=== PATIENT | male | born 1970 | race American Indian/Alaskan Native ===

== ENCOUNTER 2022-12-08 09:58 | Emergency (ER) | payer OTHER ==
[~2022-12-08] VITALS: Ht 185.4 cm; Wt 69.9 kg
[2022-12-08] MEDS ORDERED: ONDANSETRON ODT4 MG PO (16:48)
--- NOTE | 2022-12-09 13:58 | EKG ---
[facility] [address] [facility] [place] [address] Signed Sinus bradycardia with premature atrial complexes Incomplete right bundle branch block T wave abnormality, consider anterior ischemia Prolonged QT Abnormal ECG No previous ECGs available Confirmed by NINA MAYORGA MD ([id number]) on 12/09/2022 1:58:26 PM Electronically Signed By: NINA MAYORGA MD 12/09/22 1358 PATIENT NAME: JENNIFER MCKEON ALBERT Electrocardiogram DATE OF : 74 PHYSICIAN: NINA MAYORGA MD REPORT #: [id number] REPORT IS CONFIDENTIAL AND NOT TO BE RELEASED WITHOUT AUTHORIZATION
== END 2022-12-08 17:00 | disposition home or self-care (01) ==
LOC: ED 09:58
DX: R11.2 Nausea with vomiting, unspecified (principal); R19.7 Diarrhea, unspecified
CPT/HCPCS: 36415; 80053; 81001; 83690; 83735; 85025; 93005; 93010; J0461; J0780; J1200; J2405; J3475; J7030

== ENCOUNTER 2023-08-08 10:38 | Emergency (ER) | payer OTHER ==
[~2023-08-08] VITALS: Ht 185.4 cm; Wt 69.2 kg
[~2023-08-08 10:38] MED LIST: ONDANSETRON ODT4 MG PO
[2023-08-08 11:14] LABS: BASOPHILS 0.2 % (0-2); HEMATOCRIT 38.2 % (35.0-50.0); HEMOGLOBIN 12.8 g/dL (12.0-18.0); LYMPHOCYTES 3.5 % (24-44); MCH 31.6 (27-36); MCHC 33.4 g/dl (30-36); MCV 94.7 fl (81-99); MONOCYTES 1.7 % (0-12); NEUTROPHILS 94.6 % (39-80); PLATELET COUNT 130 K/uL (140-440); RBC 4.04 M/ul (4.3-5.7); RDW 13.1 (10.5-15.0)
[2023-08-08 11:26] LABS: ALBUMIN 4.4 g/dL (3.4-5.0); ALBUMIN/GLOBULIN RATIO 1.38 (1.1-2.4); ANION GAP 14.2 (7-21); BILIRUBIN, TOTAL 1.8 ng/dL (0.2-1.0); BUN/CREATININE RATIO 22.77 (6.0-28.6); CREATININE, SERUM 1.01 mg/dL (0.70-1.30); MAGNESIUM 1.7 mg/dL (1.8-2.4); POTASSIUM 4.2 mmol/L (3.5-5.1); PROTEIN, TOTAL 7.6 g/dL (6.4-8.2)
[2023-08-08] MEDS ORDERED: ONDANSETRON ODT4 MG PO (14:42)
[2023-08-08 14:57] VITALS: BP 136/72
--- NOTE | 2023-08-08 20:37 | EKG ---
[facility] [address] [facility] [place] [address] Signed Marked sinus bradycardia Incomplete right bundle branch block Abnormal ECG When compared with ECG of 08-DEC-2022 10:16, premature atrial complexes are no longer present T wave inversion less evident in Anterior leads QT has shortened Confirmed by Regla Burns MD () on 08/08/2023 8:37:11 PM Electronically Signed By: REGLA BURNS MD 08/08/232036 PATIENT NAME: JENNIFER MCKEON Electrocardiogram DATE OF : 74 PHYSICIAN: REGLA BURNS MD REPORT #: [id number] REPORT IS CONFIDENTIAL AND NOT TO BE RELEASED WITHOUT AUTHORIZATION
== END 2023-08-08 14:57 | disposition home or self-care (01) ==
LOC: ED 10:38
PROVIDERS: Emergency Medicine
DX: R11.2 Nausea with vomiting, unspecified (principal); R19.7 Diarrhea, unspecified; E83.42 Hypomagnesemia
CPT/HCPCS: 36415; 80053; 83735; 84484; 85025; 93005; 93010; 96365; 96366; 96368; 96375; 99284-25; J0461; J0780; J1200; J2405; J3475; J7030

== ENCOUNTER 2024-05-25 17:31 | Emergency (ER) | payer OTHER ==
[~2024-05-25] VITALS: Ht 185.4 cm; Wt 74.0 kg
[2024-05-25] MEDS ORDERED: ondansetron HCL 4 MG/2 ML VIAL IV ONE ×2 (17:45→19:00)
[2024-05-25] MEDS ORDERED: SODIUM CHLORIDE 0.9% 1,000 ML IV ONE ×2 (17:45→18:30)
[2024-05-25] MEDS ORDERED: droPERidol 5 MG/2 ML VIAL IV ONE (17:45)
[2024-05-25 18:01] LABS: BASOPHILS 0.3 % (0-2); EOSINOPHILS 0.1 % (0-6); HEMATOCRIT 38.3 % (35.0-50.0); HEMOGLOBIN 12.9 g/dL (12.0-18.0); LYMPHOCYTES 16.8 % (24-44); MCH 31.7 (27-36); MCHC 33.7 g/dl (30-36); MCV 93.9 fl (81-99); MONOCYTES 5.5 % (0-12); NEUTROPHILS 77.3 % (39-80); PLATELET COUNT 153 K/uL (140-440); RBC 4.07 M/ul (4.3-5.7); RDW 13.3 (10.5-15.0)
[2024-05-25 18:15] LABS: ALBUMIN 4.8 g/dL (3.4-5.0); ALBUMIN/GLOBULIN RATIO 1.55 (1.1-2.4); ANION GAP 17.3 (7-21); BILIRUBIN, TOTAL 2.4 ng/dL (0.2-1.0); BUN/CREATININE RATIO 10.79 (6.0-28.6); CREATININE, SERUM 1.76 mg/dL (0.70-1.30); MAGNESIUM 1.7 mg/dL (1.8-2.4); POTASSIUM 4.3 mmol/L (3.5-5.1); PROTEIN, TOTAL 7.9 g/dL (6.4-8.2)
[2024-05-25] MEDS ORDERED: LORazepam 2 MG/ML VIAL IV ONE (19:00)
[2024-05-25] MEDS ORDERED: ONDANSETRON 4 MG HOME.PACK SL ONE (20:00)
[2024-05-25] MEDS ORDERED: PROCHLORPERAZINE EDISYLATE 10 MG/2 ML VIAL IV ONE (20:15)
[2024-05-25 20:20] VITALS: BP 114/89
== END 2024-05-25 20:20 | disposition home or self-care (01) ==
LOC: ED 17:31
PROVIDERS: Emergency Medicine
DX: K29.00 Acute gastritis without bleeding (principal); Z88.8 Allergy status to other drugs, medicaments and biological substances
CPT/HCPCS: 36415; 80053; 83690; 83735; 85025; 96361; 96374; 96375; 96376; 99284; A9270; J1790; J2060; J2405; J7030

== ENCOUNTER 2024-08-08 07:17 | Day surgery (SDC) | payer OTHER ==
[~2024-08-08] VITALS: Ht 185.4 cm; Wt 74.0 kg
[~2024-08-08 07:17] MED LIST changes: +IBLOOD GLUCOSE TEST STRIP 1 EA TEST VI PRN; +LACTATED RINGER'S 1,000 ML IV SCH; +LIDOCAINE HCL 1% 5 ML SDV INJ ONE; +MIDAZOLAM HCL 5 MG/5 ML VIAL IV PRN; +fentaNYL citrate 100 MCG/2 ML VIAL IV PRN
[2024-08-08 07:27] VITALS: BP 124/76
--- NOTE | 2024-08-08 07:45 | NUR ---
VISITED DURING SPIRITUAL CARE ROUNDS. PT EXPRESSED CONFORT AND CONFIDENCE IN PROCEDURE, NO SIGNS OF ANXIETY IN EVIDENCE. STEAM PRESS TENDER PROVIDED SUPPORTIVE PRESENCE, HOSPITALITY, PRAYER. PT EXPRESSED GRATITUDE.
[2024-08-08] MEDS ORDERED: MIDAZOLAM HCL 5 MG/5 ML VIAL ONE (07:54)
[2024-08-08] MEDS ORDERED: fentaNYL citrate 100 MCG/2 ML VIAL ONE (07:54)
--- NOTE | 2024-08-08 08:42 | NUR ---
08/08/24 0842 Maude Jose PT TO PACU SLEEPY BUT AROUSABLE DENIES PAIN AND NAUSEA.
[2024-08-08 09:14] VITALS: BP 110/74
--- NOTE | 2024-08-08 11:54 | OR ---
[facility] [address] [place], [place] [address] Signed DATE OF OPERATION: 08/08/2024 SURGEON: Sharon Rojas MD PREOPERATIVE DIAGNOSIS: Screening. POSTOPERATIVE DIAGNOSES: 1. Moderate internal hemorrhoids. 2. Enlarged prostate (left greater than right). PROCEDURE: Sigmoidoscopy (50 cm). ESTIMATED BLOOD LOSS: None. INDICATIONS: Esperanza is a 54-year-old gentleman who continues to play competitive basketball. He is in excellent shape and at his ideal body weight with a body mass index of 21. He had been asked to see me for his initial screening colonoscopy. I would just help him a few months back with a left inguinal hernia. He told this coming into the room that he did not take any narcotics. He used Tylenol along with THC and CBD. We did warn him that our Versed and fentanyl might not be enough to sedate him enough for his colonoscopy. In that case, we have to reschedule with a monitored anesthesia care provider with propofol infusion. In the office, he told me that he has no lower GI complaints. There is no family history of colon cancer or polyps. He reminded me that helped his brother with a colonoscopy. In the office, I gave Esperanza a pamphlet on colonoscopy. We had reviewed the nature of the test. There is risk including, but not limited to gas bloating, crampy abdominal pain, bleeding, perforation requiring surgery, and missed diagnosis. We also reviewed the written instructions for a bowel prep line by line. We also had reviewed the need for IV conscious sedation. He understands it and an adult person has to take him home afterwards. He had expressed understanding and wished to proceed. DESCRIPTION OF PROCEDURE: Esperanza had been taken into our endoscopy suite and placed in the left lateral decubitus position. He had told us that he would use THC, CBD, and Tylenol after his left inguinal hernia repair. We did warn him that our Versed and fentanyl might not be enough to get him asleep. We explained to him that he is very thin. There is no fat to Electronically Signed By: SHARON ROJAS MD 08/08/24 1154 PATIENT NAME: ESPERANZA MCKEON OPERATIVE REPORT DATE OF : 74 REPORT #: [id number] PHYSICIAN: SHARON ROJAS MD PCP: CHRISTIE AVRGAS MD REPORT IS CONFIDENTIAL AND NOT TO BE RELEASED WITHOUT AUTHORIZATION [facility] [address] [place], [place] [address] Signed separate his loops of bowel. We often have to use the camera to and fro in order to unloop those areas of bowel. We gave him 8 mg of Versed and 125 mcg of fentanyl. We simply could not advance the scope beyond 50 cm. A digital rectal exam had been performed and he has no external hemorrhoids. A good sphincter tone. There were no masses. His prostate is moderately enlarged and indurated and the left is quite a bit more prominent than the right. The scope had been inserted and we had advanced it slowly up through into the left colon. We never quite got to the splenic flexure. He is so thin that we could see through the wall of his bowel. When we had to unloop the first area of bowel, it was just too much. He could not tolerate the procedure any further. His baseline heart rate in the 40s today, was in the 50s in my office. Of course, he dropped into the 30s quite quickly with the vagal response. We simply could not advance the scope any further. His prep was incredibly excellent. The scope was then slowly withdrawn. There were no diverticula. There were no polyps. Upon retroflexion of scope, he has moderate internal hemorrhoid columns. After this, the gas was suctioned out. The colonoscope was removed. Overall, Esperanza tolerated the procedure well other than what we described above. RECOMMENDATIONS: I have already contacted my senior medical director and we will reschedule Esperanza with monitored anesthesia care to include propofol infusion. We will give him a telephone call, we will make those arrangements. We will get this done in the weeks ahead. Sharon Rojas MD [facility]/MODL /[id number] cc: Patient chart [facility] Sharon Rojas MD Electronically Signed By: SHARON ROJAS MD 08/08/24 1154 PATIENT NAME: ESPERANZA MCKEON OPERATIVE REPORT DATE OF : 74 REPORT #: [id number] PHYSICIAN: SHARON ROJAS MD PCP: CHRISTIE VARGAS MD REPORT IS CONFIDENTIAL AND NOT TO BE RELEASED WITHOUT AUTHORIZATION [address] [address] Signed Copies: SHARON ROJAS MD ~ Electronically Signed By: SHARON ROJAS MD 08/08/24 1154 PATIENT NAME: ESPERANZA MCKEON OPERATIVE REPORT DATE OF : 74 REPORT #: [id number] PHYSICIAN: SHARON ROJAS MD PCP: CHRISTIE VARGAS MD REPORT IS CONFIDENTIAL AND NOT TO BE RELEASED WITHOUT AUTHORIZATION
== END 2024-08-08 09:25 | disposition home or self-care (01) ==
LOC: DS 07:17
PROVIDERS: ATTEND Colon & Rectal Surgery
PROC: 0DJD8ZZ Inspection of Lower Intestinal Tract, Via Natural or Artificial Opening Endoscopic (ICD-10-PCS; principal; 2024-08-08 08:15)
DX: Z12.11 Encounter for screening for malignant neoplasm of colon (principal); K64.8 Other hemorrhoids; N40.0 Benign prostatic hyperplasia without lower urinary tract symptoms; Z88.8 Allergy status to other drugs, medicaments and biological substances
CPT/HCPCS: 99153; G0500; J2250; J3010

== ENCOUNTER 2024-10-26 06:50 | Day surgery (SDC) | payer OTHER ==
[2024-10-23 13:50] VITALS: BP 117/71
[~2024-10-26] VITALS: Ht 185.4 cm; Wt 71.4 kg
[~2024-10-26 06:50] MED LIST changes: -IBLOOD GLUCOSE TEST STRIP 1 EA TEST VI PRN; -LACTATED RINGER'S 1,000 ML IV SCH; -LIDOCAINE HCL 1% 5 ML SDV INJ ONE
[2024-10-26] MEDS ORDERED: LACTATED RINGER'S 1,000 ML IV SCH (07:00)
[2024-10-26] MEDS ORDERED: LIDOCAINE HCL 1% 5 ML SDV INJ ONE (07:00)
[2024-10-26] MEDS ORDERED: IBLOOD GLUCOSE TEST STRIP 1 EA TEST VI PRN (07:00)
[2024-10-26 07:06] VITALS: BP 116/77
[2024-10-26 07:31] VITALS: BP 107/44
[2024-10-26 07:52] VITALS: BP 100/59
[2024-10-26] MEDS ORDERED: propofoL 200 MG/20 ML VIAL ONE (07:56)
[2024-10-26] MEDS ORDERED: LIDOCAINE HCL 2% 5 ML SDV ONE (07:56)
--- NOTE | 2024-10-26 09:03 | NUR ---
10/26/24 0903 Sheets,Heidi 0830 PT ARRIVED TO PACU ON 2L NC, PT WAKES EASILY AND REPORTS GAS PAIN 12/01. PT MOANING AND ROLLS TO RIGHT SIDE. PT ENCOURAGED TO PASS GAS NEEDED. 0834 O2 REMOVED. PT REPORTS GAS PAIN AND RN CONTINUES TO ENCOURAGE PASSING GAS. 0855 PT ROLLED TO BACK AND STARTS TO PASS GAS. PLAN OF CARE DISCUSSED.
[2024-10-26 09:04] VITALS: BP 137/75
--- NOTE | 2024-10-26 09:48 | OR ---
[facility] [address] [place], [place] [address] Signed DATE OF OPERATION: 10/26/2024 SURGEON: Sharon Muhammad MD PREOPERATIVE DIAGNOSIS: Screening. POSTOPERATIVE DIAGNOSES: 1. Long redundant colon. 2. Tortuous sigmoid and left colon. 3. Moderate internal hemorrhoids. 4. A 3 mm polyps x4 at 7 cm in rectum. 5. A 4 mm polyp at 50 cm in left colon. PROCEDURE: Colonoscopy with hot biopsy. ESTIMATED BLOOD LOSS: None. INDICATIONS: Esperanza is a 54-year-old gentleman, who had come to us a few weeks ago for his initial screening colonoscopy. He has no lower GI complaints. There is no family history of colon cancer or polyps. He said I helped his brother with a colonoscopy. I also helped Esperanza with an inguinal hernia in the past. He said that is doing much better. He continues to be very athletic and play basketball on organized league. He says he does not like to take narcotics whatsoever. We had him here a few weeks ago. We gave him Versed and fentanyl. He was far too awake in too much pain to advance the scope even all the way through the sigmoid colon. We had to stop and reschedule him with moderate anesthesia care with propofol infusion. He had told the nurses that he actually uses marijuana, I think that is part of the issue. Nevertheless, he returns today to have his initial screening colonoscopy. In the office, I had given him a pamphlet on colonoscopy. He is aware of the nature of the test. There is risk including, but not limited to gas bloating, crampy abdominal pain, bleeding, perforation requiring surgery, and missed diagnosis. We also reviewed the written instructions for the bowel prep line by line. He had expressed understanding and wished to proceed. He understands an adult person has to take him home afterwards. DESCRIPTION OF PROCEDURE: Esperanza was taken into our endoscopy suite and placed in the left lateral decubitus Electronically Signed By: SHARON MUHAMMAD MD 10/26/24 0948 PATIENT NAME: ESPERANZA MCKEON OPERATIVE REPORT DATE OF : 74 REPORT #: [id number] PHYSICIAN: SHARON MUHAMMAD MD PCP: CHRISTIE VARGAS MD REPORT IS CONFIDENTIAL AND NOT TO BE RELEASED WITHOUT AUTHORIZATION [facility] [address] [place], [place] [address] Signed position. He was given monitored anesthesia care with propofol infusion per nurse transportation maintenance worker. A digital rectal exam was performed and this was unremarkable. He had no external hemorrhoids. He had good sphincter tone. There were no masses. His prostate was not overly enlarged, but it is getting indurated and showed me more prominent on the left than on the right. The adult colonoscope had been introduced and advanced under direct visualization of camera. He indeed has a tortuous sigmoid and left colon. It took quite a bit of propofol to get through that area. After that, we needed some abdominal compression to get the scope advanced into the cecum itself. We had to bring the scope in and out multiple times to straighten out his long redundant colon. His prep was quite excellent. We could easily see the appendiceal orifice and ileocecal valve. The scope was then slowly withdrawn. The above-mentioned polyps were easily removed with the help of hot biopsy forceps. There was no diverticulosis. Once in the rectum, the scope was retroflexed. He does have moderate internal hemorrhoid columns. After this, the gas was suctioned out. The colonoscope removed. Esperanza tolerated the procedure overall much better with the propofol infusion. RECOMMENDATIONS: I will see Esperanza back in my office in 7 to 14 days to review his results. He will always be monitored anesthesia care with propofol infusion in the future. He might consider followup on his prostate exam with his primary care provider. Sharon Muhammad MD [facility]/MODL /[id number] cc: Patient Chart Sharon Muhammad MD [facility] Copies: SHARON MUHAMMAD MD Electronically Signed By: SHARON MUHAMMAD MD 10/26/24 0948 PATIENT NAME: ESPERANZA MCKEON OPERATIVE REPORT DATE OF : 74 REPORT #: [id number] PHYSICIAN: SHARON MUHAMMAD MD PCP: CHRISTIE VARGAS MD REPORT IS CONFIDENTIAL AND NOT TO BE RELEASED WITHOUT AUTHORIZATION [facility] [address] [place] [address] [place] [address] Signed [facility] ~ Electronically Signed By: SHARON MUHAMMAD MD 10/26/24 0948 PATIENT NAME: ESPERANZA MCKEON OPERATIVE REPORT DATE OF : 74 REPORT #: [id number] PHYSICIAN: SHARON MUHAMMAD MD PCP: CHRISTIE VARGAS MD REPORT IS CONFIDENTIAL AND NOT TO BE RELEASED WITHOUT AUTHORIZATION
--- NOTE | 2024-10-30 19:59 | PATH ---
[facility] [address] [facility] [place], [place] [address] Signed SPECIMEN(S): A COLON POLYP AT 7 CM SPECIMEN(S): B COLON POLYP AT 50 CM SPECIMEN SOURCE: A. COLON POLYP AT 7 CM B. COLON POLYP AT 50 CM CLINICAL HISTORY: Screening. Post: Long redundant tortuous colon, polyps, internal hemorrhoids FINAL PATHOLOGIC DIAGNOSIS: A. Colon polyp at 7 cm: - Tubular adenoma (one fragment). - Hyperplastic polyp (one fragment). B. Colon polyp at 50 cm: - Tubular adenoma (one fragment). - Hyperplastic polyp (one fragment). JVR:smn MICROSCOPIC EXAMINATION: Histologic sections of all submitted blocks are examined by light microscopy. These findings, together with the gross examination, support the pathologic diagnosis. GROSS DESCRIPTION: A. The specimen, labeled and designated "Watchjulio c, L, colon polyp at 7 cm," is received in formalin and consists of two awan soft tissue fragments, ranging from 0.2-0.3 cm. Entirely submitted in (A1). B. The specimen, labeled and designated "Watchman, L, colon polyp at 50 cm," is received in formalin and consists of two awan soft tissue fragments, ranging from 0.2-0.3 cm. Entirely submitted in (B1). AB (under the direct supervision of a pathologist) The Gross Description was prepared using a voice recognition system. The report was reviewed for accuracy; however, sound-alike word errors, addition and/or deletions may occur. If there is any question about this report, please contact Client Services. PERFORMING LABORATORY: Technical component was performed by [employer], [address] [place] [id number] (CLIA# [id number]). Professional interpretation was performed by [facility] - [facility], [facility] PATIENT NAME: JENNIFER MCKEON PATHOLOGY DATE OF : 74 REPORT #: [id number] PHYSICIAN: [facility] PCP: CHRISTIE VARGAS MD REPORT IS CONFIDENTIAL AND NOT TO BE RELEASED WITHOUT AUTHORIZATION [facility] [address] [place], [place] [address], [place] [address] (CLIA#: [id number]). Diagnostician: Hernandez Flores MD Pathologist Electronically Signed 10/30/2024 Copies: ~ PATIENT NAME: JENNIFER MCKEON ALBERT PATHOLOGY DATE OF : 74 REPORT #: [id number] PHYSICIAN: [facility] PCP: CHRISTIE VARGAS MD REPORT IS CONFIDENTIAL AND NOT TO BE RELEASED WITHOUT AUTHORIZATION
== END 2024-10-26 09:17 | disposition home or self-care (01) ==
LOC: DS 06:50
PROVIDERS: ATTEND Colon & Rectal Surgery
PROC: 0DBE8ZX Excision of Large Intestine, Via Natural or Artificial Opening Endoscopic, Diagnostic (ICD-10-PCS; 2024-10-26)
PROC: 0DBP8ZX Excision of Rectum, Via Natural or Artificial Opening Endoscopic, Diagnostic (ICD-10-PCS; principal; 2024-10-26 08:05)
DX: Z12.11 Encounter for screening for malignant neoplasm of colon (principal); D12.6 Benign neoplasm of colon, unspecified; D12.8 Benign neoplasm of rectum; K64.4 Residual hemorrhoidal skin tags; K64.8 Other hemorrhoids; Q43.8 Other specified congenital malformations of intestine; I45.10 Unspecified right bundle-branch block; Z88.8 Allergy status to other drugs, medicaments and biological substances
CPT/HCPCS: 00812; 88305; J2003; J2704; J7121

== ENCOUNTER 2025-08-02 15:27 | Emergency (ER) | payer OTHER ==
[~2025-08-02] VITALS: Ht 185.4 cm; Wt 73.0 kg
[~2025-08-02 15:27] MED LIST changes: -MIDAZOLAM HCL 5 MG/5 ML VIAL IV PRN; -fentaNYL citrate 100 MCG/2 ML VIAL IV PRN
[2025-08-02 16:00] LABS: BASOPHILS 0.2 % (0.2-1.2); EOSINOPHILS 0.2 % (0.8-7.0); LYMPHOCYTES 15.7 % (21.8-53.1); MCH 31.7 PG (25.7-32.2); MCHC 34.5 g/dL (32.3-36.5); MCV 91.9 fL (79.0-92.2); MONOCYTES 8.3 % (5.3-12.2); NEUTROPHILS 75.4 % (34.0-67.9); RBC 3.82 M/uL (4.63-6.08)
[2025-08-02] MEDS ORDERED: SODIUM CHLORIDE 0.9% 1,000 ML IV PRN (16:15)
[2025-08-02 16:18] LABS: ALT (SGPT) 15.0 U/L (14-59); AST (SGOT) 16.0 U/L (15-37); GLOMERULAR FILTRATION RATE,EST 68.0 mL/min (>60); PROTEIN, TOTAL 6.4 g/dL (6.4-8.2); UREA NITROGEN 18.0 mg/dL (7-18)
[2025-08-02] MEDS ORDERED: OMEPRAZOLE40 MG PO (17:17)
[2025-08-02 17:39] VITALS: BP 113/78
== END 2025-08-02 17:39 | disposition home or self-care (01) ==
LOC: ED 15:27
PROVIDERS: Emergency Medicine
DX: R10.13 Epigastric pain (principal); D64.9 Anemia, unspecified; Z88.8 Allergy status to other drugs, medicaments and biological substances
CPT/HCPCS: 36415; 74177; 80053; 83690; 83735; 85025; 99284-25; Q9967